=== PATIENT | male | born 1965 | race Caucasian/White ===

== ENCOUNTER 2016-12-22 14:20 | Emergency (ER) | payer MEDICAID ==
[~2016-12-22] VITALS: Ht 167.6 cm; Wt 98.0 kg
[~2016-12-22 14:20] MED LIST: DOXY50CA42 PO; IBUP200T48 PO; SERT100T PO; SULF1TAB24 PO
[2016-12-22 14:28] VITALS: BP 147/91
[2016-12-22] MEDS ORDERED: KETOROLAC 30 MG/1 ML ONE (14:52)
[2016-12-22] MEDS ORDERED: KETOROLAC 30 MG/1 ML IM ONE (15:00)
== END 2016-12-22 15:36 | disposition home or self-care (01) ==
LOC: ED 15:13
DX: M25.572 Pain in left ankle and joints of left foot (principal); M54.9 Dorsalgia, unspecified; G89.29 Other chronic pain; X50.1XXA Overexertion from prolonged static or awkward postures, initial encounter; Y93.89 Activity, other specified; Y99.8 Other external cause status; Y92.099 Unspecified place in other non-institutional residence as the place of occurrence of the external cause
CPT/HCPCS: 73610; 96372; 99284; J1885

== ENCOUNTER 2018-03-13 14:51 | Emergency (ER) | payer BC, MEDICAID ==
[~2018-03-13] VITALS: Ht 170.2 cm; Wt 96.2 kg
[~2018-03-13 14:51] MED LIST changes: -IBUP200T48 PO; +IBUP200T49 PO
--- NOTE | 2018-03-13 15:28 | NUR ---
TRIAGE NOTE: INTERMITTENT RT EAR PAIN AND DECREASED HEARING IN BOTH EARS X4 DAYS
--- NOTE | 2018-03-13 16:10 | NUR ---
Dr. Guillen at bedside to evaluate pt.
--- NOTE | 2018-03-13 16:30 | NUR ---
RN at bedside to irrigate ear, large amount of ear wax irrigated out. Pt states his hearing is returned to normal.
[2018-03-13 17:09] VITALS: BP 145/78
--- NOTE | 2018-03-13 17:10 | NUR ---
Patient/Caregiver given discharge instructions and they have confirmed that they understand the instructions. Patient ambulatory with steady gait.
== END 2018-03-13 17:11 | disposition home or self-care (01) ==
LOC: ED 17:05
DX: H61.21 Impacted cerumen, right ear (principal); G89.29 Other chronic pain
CPT/HCPCS: 69209; 99281; 99282

== ENCOUNTER 2020-02-02 11:01 | Emergency (ER) | payer SELFPAY ==
[~2020-02-02] VITALS: Ht 167.6 cm; Wt 96.6 kg
[2020-02-02 11:08] VITALS: BP 149/60
[2020-02-02] MEDS ORDERED: LIDOCAINE-MPF 1%, 5ML ONE (11:44)
[2020-02-02] MEDS ORDERED: LIDOCAINE-MPF 1%, 5ML INFIL ONE (12:00)
== END 2020-02-02 12:13 | disposition home or self-care (01) ==
LOC: ED 11:39
DX: L02.01 Cutaneous abscess of face (principal); H92.01 Otalgia, right ear; K08.89 Other specified disorders of teeth and supporting structures; G89.29 Other chronic pain
CPT/HCPCS: 10060; 99283